=== PATIENT | male | born 1995 | race Caucasian/White ===

== ENCOUNTER 2019-09-06 10:06 | Day surgery (SDC) | payer OTHER ==
[2019-09-01 16:57] VITALS: BMI 23.0
[2019-09-06] MEDS ORDERED: MIDAZOLAM HCL 2 MG/2 ML SINGLE DOSE VIAL ONE ×2 (14:20)
[2019-09-06] MEDS ORDERED: SUCCINYLCHOLINE CHLORIDE 200 MG/10 ML SYRINGE ONE (14:21)
[2019-09-06] MEDS ORDERED: PROPOFOL 20 ML ONE (14:21)
[2019-09-06] MEDS ORDERED: ceFAZolin SODIUM 1 GM VIAL IVPB ONE (14:35)
[2019-09-06] MEDS ORDERED: BUPIVACAINE HCL/PF 0.25% (2.5MG/ML) 10 ML VIAL ONE (14:38)
[2019-09-06] MEDS ORDERED: ceFAZolin SODIUM 1 GM VIAL ONE (14:41)
[2019-09-06] MEDS ORDERED: LIDOCAINE HCL/PF 2% SDV 5ML VIAL ONE (14:41)
[2019-09-06] MEDS ORDERED: BACITRACIN 15 GM TUBE TOPICAL OINTMENT ONE (14:43)
[2019-09-06] MEDS ORDERED: BUPIVACAINE HCL/PF 2.5 MG/ML - 30 ML VIAL IJ ONE (14:58)
--- NOTE | 2019-09-06 15:15 | OP ---
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
[2019-09-06] MEDS ORDERED: PROMETHAZINE HCL 25 MG/1 ML VIAL IVPUSH PRN (15:23)
[2019-09-06] MEDS ORDERED: oxyCODONE HCL 5 MG TABLET PO PRN ×2 (15:23)
[2019-09-06] MEDS ORDERED: ONDANSETRON 4 MG/2 ML VIAL IVPUSH PRN (15:23)
--- NOTE | 2019-09-06 16:00 | OP ---
DATE OF OPERATION: 09/06/2019 PREOPERATIVE DIAGNOSIS: Penile phimosis and penile chordae. POSTOPERATIVE DIAGNOSIS: Penile phimosis and penile chordae. OPERATIVE PROCEDURE: Penoplasty, circumcision, and a penile block. ANESTHESIA: General. DESCRIPTION OF PROCEDURE: Under above-stated anesthesia, patient was prepped and draped in the usual sterile manner. He is placed in the supine position. A circumferential incision was made below the tabor of the penis. An artificial erection created with normal saline revealed a tight frenulum with an SST deformity of the glans penis. The frenulum was then lysed off the corpus spongiosum, clamped proximally and distally, and then transected. Fibrous tissues surrounding the urethra was also excised with a Rawls scissors. A repeat artificial erection revealed straightening of the penis. Therefore excess foreskin was excised in a circumferential manner. Skin from the skin was approximated to skin from the glands using 4-0 Vicryl suture ligatures. Pressure dressing was applied. 0.25% Marcaine was infiltrated in the base of the penis for long-term analgesia. The patient tolerated the procedure well. Montrell [id number]
[2019-09-06 17:15] VITALS: TEMP 97.5
[2019-09-06 18:30] VITALS: BP 121/71; PULSE 61
--- NOTE | 2019-09-08 12:09 | PATH ---
Surgical Pathology Report Patient Name: ENE LOCK [facility]. Rec. #: [id number] /Age/Gender: 1995 (Age: 24) / M Account: [id number] Location: [facility] SURGICAL Taken: 09/06/2019 Received: 09/07/2019 Reported: 09/08/2019 Physicians: Lamont Ireland M.D. Specimen(s) Received [place] Clinical History Phimosis and balanitis Final Diagnosis FOR[place], CIRCUMCISION/PENOPLASTY: GENITAL SKIN WITH MILD FOCAL SUPERFICIAL CHRONIC INFLAMMATION. Electronically Signed Ashley Vance M.D. Gross Description Received in formalin labeled "foreskin," is a 4.5 x 2.0 x 0.4 cm araujo, unoriented, wrinkled portion of skin, consistent with foreskin. No discrete epidermal lesions are identified. A vendor representatives section is submitted in one cassette. /09/07/2019 saudi/09/07/2019
== END 2019-09-06 18:15 | disposition home or self-care (01) ==
LOC: JASU-SURG 10:06
PROVIDERS: ATTEND Urology
PROC: 0VNS0ZZ Release Penis, Open Approach (ICD-10-PCS; 2019-09-06)
PROC: 0VTTXZZ Resection of Prepuce, External Approach (ICD-10-PCS; principal; 2019-09-06 12:00)
DX: N47.1 Phimosis (principal); N48.89 Other specified disorders of penis
CPT/HCPCS: 94760